=== PATIENT | female | born 1975 | race Caucasian/White ===

== ENCOUNTER 2019-12-16 08:05 | Outpatient (CLI) | payer OTHER ==
--- NOTE | 2019-12-16 08:46 | ULT ---
HEPATIC DOPPLER ULTRASOUND: HISTORY: Abnormal liver function tests. COMPARISON: None. TECHNIQUE: Grayscale, color flow, Doppler imaging and spectral waveform analysis of the hepatic vasculature. FINDINGS: Visualized aorta has a normal caliber. Appropriate echotexture of the visualized pancreas. Heterogeneous echotexture of the liver likely due to hepatic steatosis or hepatocellular disease. Sub sequent limited evaluation for hepatic masses and intrahepatic biliary dilatation. The contour of the hepatic margin is maintained. Right hepatic lobe measures 16.8 cm. Spleen is normal in echotexture, measuring 11.6 cm in maximum dimension. Gallbladder is surgically absent. Common bile duct diameter 0.61 cm. Visualized IVC is unremarkable. Hepatic Doppler: There is patency and appropriate directional flow of the main portal vein, left portal vein, right po rtal vein, middle hepatic vein, left hepatic vein, right hepatic vein, hepatic artery. There is patency and appropriate directional flow of the splenic vein and artery. IMPRESSION: 1. Normal hepatic Doppler. 2. Heterogeneous echotexture of the liver as described above. Transcribed Date/Time: 12/16/2019 8:53 AM
== END 2019-12-16 08:06 | disposition home or self-care (01) ==
LOC: SCSULT 08:05
PROVIDERS: ATTEND Internal Medicine Gastroenterology
DX: R94.5 Abnormal results of liver function studies (principal); R93.2 Abnormal findings on diagnostic imaging of liver and biliary tract
CPT/HCPCS: 76705

== ENCOUNTER 2021-10-03 13:44 | Outpatient (CLI) | payer BC | END 2021-10-03 13:45 | disposition home or self-care (01) | LOC: BICRAD 13:44 | PROVIDERS: ATTEND Student in an Organized Health Care Education/Training Program | DX: M25.561 Pain in right knee (principal); M17.11 Unilateral primary osteoarthritis, right knee ==